=== PATIENT | female | born 1940 | race Caucasian/White ===

== ENCOUNTER 2021-09-10 18:20 | Emergency (ER) | payer MEDICARE, OTHER ==
[2021-09-10 19:03] LABS: HEMOGLOBIN 7.3 gm/dl (12.3-15.3); RED BLOOD COUNT 3.31 M/UL (4.00-5.10); WHITE BLOOD COUNT 19.2 K/UL (4.5-11.0)
[2021-09-10 19:30] LABS: BUN/CREATININE RATIO 24 (0-10)
== END 2021-09-10 23:58 | disposition short-term general hospital (02) ==
LOC: ER1 18:20
PROVIDERS: Preventive Medicine Occupational Medicine
DX: A41.9 Sepsis, unspecified organism (principal); N82.3 Fistula of vagina to large intestine; Z20.822 Contact with and (suspected) exposure to COVID-19
CPT/HCPCS: 71045; 80053; 82272; 82550; 82553; 83605; 83880; 84484; 85025; 85652; 86140; 86850; 86900; 86901; 93005; 96365; 96375; 99285; J0696; Q9967; U0002

== ENCOUNTER 2021-09-19 12:07 | Inpatient (IN) | payer MEDICARE, OTHER ==
[~2021-09-19] VITALS: Ht 157.5 cm; Wt 44.5 kg
[~2021-09-19 12:07] MED LIST: HYDROXYZINE HCL10 MG PO; XYZAL5 MG PO
[2021-09-19 13:22] LABS: HEMOGLOBIN 9.3 gm/dl (12.3-15.3); RED BLOOD COUNT 3.84 M/UL (4.00-5.10); WHITE BLOOD COUNT 11.2 K/UL (4.5-11.0)
[2021-09-19 13:47] LABS: BUN/CREATININE RATIO 14 (0-10)
[2021-09-19] MEDS ORDERED: DIPHENOXYLATE-1 EACH PO (17:35)
[2021-09-19] MEDS ORDERED: CLONAZEPAM1 MG PO (17:35)
[2021-09-19] MEDS ORDERED: OXYCODONE HCL10 MG PO (17:36)
[2021-09-19] MEDS ORDERED: HYDROXYZINE HCL10 MG PO (17:36)
[2021-09-19] MEDS ORDERED: LEVOCETIRIZINE D5 MG PO (17:36)
[2021-09-19] MEDS ORDERED: AMLODIPINE BESY10 MG PO (17:36)
[2021-09-19] MEDS ORDERED: METOPROLOL SUCC25 MG PO (17:37)
[2021-09-19] MEDS ORDERED: LISINOPRIL20 MG PO (17:37)
[2021-09-19] MEDS ORDERED: PRAVASTATIN SOD10 MG PO (17:37)
[2021-09-19] MEDS ORDERED: ZOFRAN 4 MG TAB4 MG PO (17:37)
[2021-09-20 04:31] LABS: HEMOGLOBIN 7.2 gm/dl (12.3-15.3); RED BLOOD COUNT 3.02 M/UL (4.00-5.10); WHITE BLOOD COUNT 7.2 K/UL (4.5-11.0)
[2021-09-20 04:44] LABS: BUN/CREATININE RATIO 13 (0-10)
[2021-09-21 02:42] LABS: HEMOGLOBIN 7.7 gm/dl (12.3-15.3); RED BLOOD COUNT 3.21 M/UL (4.00-5.10); WHITE BLOOD COUNT 7.2 K/UL (4.5-11.0)
[2021-09-21 03:01] LABS: BUN/CREATININE RATIO 9 (0-10)
[2021-09-21 20:25] LABS: CANDIDA ALBICANS Not Detected (Negative); ESCHERICHIA COLI Not Detected (Negative); HAEMOPHILUS INFLUENZAE Not Detected (Negative); KLEBSIELLA OXYTOCA Not Detected (Negative); KLEBSIELLA PNEUMONIAE Not Detected (Negative); KPC-CARBAPENEM-RESISTANCE GENE Not Detected (Negative); PROTEUS Not Detected (Negative); PSEUDOMONAS AERUGINOSA Not Detected (Negative); SERRATIA MARCESANS Not Detected (Negative); STAPHYLOCOCCUS Not Detected (Negative); STAPHYLOCOCCUS AUREUS Not Detected (Negative); STREP AGALACTIAE (GROUP B) Not Detected (Negative); STREP PYOGENES (GROUP A) Not Detected (Negative); STREPTOCOCCUS Not Detected (Negative); vanA/B (VANCOMYCIN RESIST GENE Not Detected (Negative)
[2021-09-21 20:26] LABS: CANDIDA KRUSEI Not Detected (Negative); CANDIDA TROPICALIS Not Detected (Negative)
[2021-09-23 03:41] LABS: BUN/CREATININE RATIO 9 (0-10)
[2021-09-23 09:23] LABS: HEMOGLOBIN 7.8 gm/dl (12.3-15.3); RED BLOOD COUNT 3.21 M/UL (4.00-5.10); WHITE BLOOD COUNT 9.1 K/UL (4.5-11.0)
== END 2021-09-24 00:35 | disposition short-term general hospital (02) | DRG 393 ==
LOC: ER1 12:07 → CDU 15:46 → M/S 15:46
PROVIDERS: Emergency Medicine; Internal Medicine; Physician Assistant; ADMIT Internal Medicine
DX: N82.3 Fistula of vagina to large intestine (principal); E43 Unspecified severe protein-calorie malnutrition; G93.41 Metabolic encephalopathy; N39.0 Urinary tract infection, site not specified; D50.9 Iron deficiency anemia, unspecified; I10 Essential (primary) hypertension; E86.0 Dehydration; Z98.890 Other specified postprocedural states; Z83.3 Family history of diabetes mellitus; Z85.43 Personal history of malignant neoplasm of ovary; D75.839 Thrombocytosis, unspecified; E16.2 Hypoglycemia, unspecified
CPT/HCPCS: 36415; 71045; 80048; 80053; 82962; 83540; 83550; 83605; 83735; 84100; 85025; 85027; 87040; 87075; 87150; 96374; 96375; 97110-GP-CQ; 97116; 97116-GP-CQ; 97161; 97165; 97530-GP-CQ; 99285; J2543; J3370; J7030; J7070; U0002

== ENCOUNTER 2021-10-25 16:49 | Emergency (ER) | payer MEDICARE, OTHER ==
[~2021-10-25 16:49] MED LIST changes: +AMLODIPINE BESY10 MG PO; +CLONAZEPAM1 MG PO; +DIPHENOXYLATE-1 EACH PO; +LEVOCETIRIZINE D5 MG PO; +LISINOPRIL20 MG PO; +METOPROLOL SUCC25 MG PO; +OXYCODONE HCL10 MG PO; +PRAVASTATIN SOD10 MG PO; +ZOFRAN 4 MG TAB4 MG PO
[2021-10-25 17:37] LABS: HEMOGLOBIN 10.6 gm/dl (12.3-15.3); RED BLOOD COUNT 4.14 M/UL (4.00-5.10); WHITE BLOOD COUNT 11.1 K/UL (4.5-11.0)
[2021-10-25 18:01] LABS: BUN/CREATININE RATIO 22 (0-10)
== END 2021-10-26 02:35 | disposition short-term general hospital (02) ==
LOC: ER1 16:49
PROVIDERS: Family Medicine
DX: F03.90 Unspecified dementia, unspecified severity, without behavioral disturbance, psychotic disturbance, mood disturbance, and anxiety (principal); I63.9 Cerebral infarction, unspecified; R65.10 Systemic inflammatory response syndrome (SIRS) of non-infectious origin without acute organ dysfunction; K46.9 Unspecified abdominal hernia without obstruction or gangrene; G45.9 Transient cerebral ischemic attack, unspecified; I10 Essential (primary) hypertension; E78.5 Hyperlipidemia, unspecified; Z20.822 Contact with and (suspected) exposure to COVID-19; Z87.42 Personal history of other diseases of the female genital tract
CPT/HCPCS: 0240U; 51702; 70450; 70496; 70498; 71045; 80053; 81001; 82550; 82553; 83605; 83735; 84100; 84484; 85025; 85610; 86140; 87040; 87086; 93005; 99285; Q9967